=== PATIENT | female | born 1945 | race Two or more races ===

== ENCOUNTER 2017-08-10 16:24 | Emergency (ER) | payer OTHER, MEDICAID ==
[~2017-08-10] VITALS: Ht 157.5 cm; Wt 76.2 kg
[2017-08-10 16:43] VITALS: BP 124/86
[2017-08-10 19:30] LABS: Basophils # (auto) 0.1 uL; Basophils % (auto) 1.1 % (0.0-2.0); Eosinophils # (auto) 0.4 uL; Eosinophils % (auto) 7.3 % (0.0-7.0); Hematocrit 43.1 % (36.0-46.0); Hemoglobin 14.1 g/dL (12.2-16.2); Lymphocytes # (auto) 1.3 uL; Lymphocytes % (auto) 26.9 % (10.0-50.0); Mean Corpuscular Hemoglobin 28.2 pg (28.0-32.0); Mean Corpuscular Hgb Conc. 32.7 g/dL (32.0-36.0); Mean Corpuscular Volume 86.2 fL (80.0-100.0); Monocytes # (auto) 0.6 uL; Monocytes % (auto) 12.6 % (0.0-12.0); Neutrophils # (auto) 2.6 uL; Neutrophils % (auto) 52.1 % (37.0-80.0); Nucleated Red Blood Cells % 0.7 %; Platelet Count (auto) 246 10^3/uL (140-450); Red Cell Distribution Width 14.4 % (11.8-14.3); White Blood Cell 4.9 10^3/uL (4.4-10.8)
[2017-08-10 19:44] LABS: Albumin 3.8 g/dL (3.4-5.0); BUN/Creatinine Ratio 23.6; Bilirubin, Total 0.3 mg/dL (0.2-1.0); Calcium 9.2 mg/dL (8.5-10.1); Potassium 4.4 mmol/L (3.5-5.1); Total Protein 7.6 g/dL (6.4-8.2)
== END 2017-08-10 22:13 | disposition left against medical advice (07) ==
LOC: ER 16:24
DX: J40 Bronchitis, not specified as acute or chronic (principal); E11.9 Type 2 diabetes mellitus without complications; I10 Essential (primary) hypertension
CPT/HCPCS: 36415; 71046; 80053; 84484; 85025; 93005

== ENCOUNTER → 2018-06-20 | Day surgery (SDC) | payer OTHER, MEDICAID ==
[~2018-06-20] VITALS: Ht 152.4 cm; Wt 76.2 kg
[~2018-06-20] MED LIST: AMLO5TAB13 PO; ANGIOMAX 250 MG VIAL IV ONE; ASPI-231 PO; HEPARIN SODIUM (PORCINE) 5000 UNITS/ML 1ML VIAL ONE; IODIXANOL 320MG/ML 100ML BTL IV ONE; LIDOCAINE 2%HCL (LOCAL ANESTH.) INJ 20ML MDV ONE; LISI-706 PO; METF-371 PO; MIDAZOLAM HCL 1MG/1ML-2 ML VIAL ONE; SIMV-8 PO; SODIUM CHL 0.9% 0 ML ONE; VERAPAMIL 2.5MG/ML INJ 2ML VIAL IV ONE; fentaNYL CITRATE 100 MCG/2 ML VL ONE
== END | disposition home or self-care (01) ==
LOC: CATH 09:37
PROVIDERS: ATTEND Internal Medicine
DX: I25.10 Atherosclerotic heart disease of native coronary artery without angina pectoris (principal); R94.39 Abnormal result of other cardiovascular function study; E11.9 Type 2 diabetes mellitus without complications; F10.99 Alcohol use, unspecified with unspecified alcohol-induced disorder; I11.0 Hypertensive heart disease with heart failure; E78.5 Hyperlipidemia, unspecified; I25.2 Old myocardial infarction; I73.9 Peripheral vascular disease, unspecified; J45.909 Unspecified asthma, uncomplicated; Z88.8 Allergy status to other drugs, medicaments and biological substances; Z79.84 Long term (current) use of oral hypoglycemic drugs; Z79.899 Other long term (current) drug therapy; Z87.891 Personal history of nicotine dependence; Z79.82 Long term (current) use of aspirin
CPT/HCPCS: 36600; 82805; 93458; 93886; A6257; C1769; C1894; J1644; J2250; J3010; J7030; Q9967; 99152

== ENCOUNTER → 2018-06-26 | Outpatient (CLI) | payer OTHER, MEDICAID ==
[~2018-06-26] MED LIST changes: -ANGIOMAX 250 MG VIAL IV ONE; -HEPARIN SODIUM (PORCINE) 5000 UNITS/ML 1ML VIAL ONE; -IODIXANOL 320MG/ML 100ML BTL IV ONE; -LIDOCAINE 2%HCL (LOCAL ANESTH.) INJ 20ML MDV ONE; -MIDAZOLAM HCL 1MG/1ML-2 ML VIAL ONE; -SODIUM CHL 0.9% 0 ML ONE; -VERAPAMIL 2.5MG/ML INJ 2ML VIAL IV ONE; -fentaNYL CITRATE 100 MCG/2 ML VL ONE
== END | disposition home or self-care (01) ==
LOC: XYW 10:50
PROVIDERS: ATTEND Specialist
DX: I08.1 Rheumatic disorders of both mitral and tricuspid valves (principal); I25.10 Atherosclerotic heart disease of native coronary artery without angina pectoris
CPT/HCPCS: 93306

== ENCOUNTER → 2018-09-05 | Outpatient (CLI) | payer OTHER, MEDICAID ==
[~2018-09-05] MED LIST changes: +ATOR20TA50 PO; +CLOP75TA28 PO; +GABA300C10 PO; -LISI-706 PO; +MET25T PO; +NITR0.4S29 SL; -SIMV-8 PO
== END | disposition home or self-care (01) ==
LOC: Rad HDHVI 09:41
PROVIDERS: ATTEND Internal Medicine Cardiovascular Disease
DX: I50.23 Acute on chronic systolic (congestive) heart failure (principal); I25.119 Atherosclerotic heart disease of native coronary artery with unspecified angina pectoris
CPT/HCPCS: 93306

== ENCOUNTER → 2018-10-31 | Outpatient (CLI) | payer OTHER, MEDICAID ==
[~2018-10-31] VITALS: Ht 152.4 cm; Wt 75.3 kg
[~2018-10-31] MED LIST changes: +ADENOSINE 63 MG in GIVE UN-DILUTED 0 ML IV ONE; +ADENOSINE 90 MG/30 ML INJ IV ONE
== END | disposition home or self-care (01) ==
LOC: Rad HDHVI 09:50
PROVIDERS: ATTEND Internal Medicine Cardiovascular Disease
DX: I25.119 Atherosclerotic heart disease of native coronary artery with unspecified angina pectoris (principal); I13.0 Hypertensive heart and chronic kidney disease with heart failure and stage 1 through stage 4 chronic kidney disease, or unspecified chronic kidney disease; E11.22 Type 2 diabetes mellitus with diabetic chronic kidney disease; I50.23 Acute on chronic systolic (congestive) heart failure; N18.3 Chronic kidney disease, stage 3 (moderate)
CPT/HCPCS: 78452; 93005; 96374; 96375; A9500; J0153

== ENCOUNTER 2019-01-26 14:10 | Emergency (ER) | payer OTHER, MEDICAID ==
[~2019-01-26] VITALS: Ht 152.4 cm; Wt 77.1 kg
[~2019-01-26 14:10] MED LIST changes: -ADENOSINE 63 MG in GIVE UN-DILUTED 0 ML IV ONE; -ADENOSINE 90 MG/30 ML INJ IV ONE; -AMLO5TAB13 PO; +AMLO5TAB15 PO; +HYDR50TA15 PO; +ISOS20TA49 PO
[2019-01-26 17:14] VITALS: BP 139/69
[2019-01-26] MEDS ORDERED: ALBUTEROL SULF 2.5 MG/0.5ML(0.5%) NEB SOLN NEB ONE (18:15)
[2019-01-26] MEDS ORDERED: IPRATROPIUM BROM 0.5 MG/2.5ML INH SOL NEB ONE (18:15)
== END 2019-01-26 19:02 | disposition home or self-care (01) ==
LOC: ER 14:13
DX: T82.858A Stenosis of other vascular prosthetic devices, implants and grafts, initial encounter (principal); N12 Tubulo-interstitial nephritis, not specified as acute or chronic; J45.909 Unspecified asthma, uncomplicated; E11.9 Type 2 diabetes mellitus without complications; E78.5 Hyperlipidemia, unspecified; I10 Essential (primary) hypertension; Z90.710 Acquired absence of both cervix and uterus; Z87.891 Personal history of nicotine dependence; Y83.8 Other surgical procedures as the cause of abnormal reaction of the patient, or of later complication, without mention of misadventure at the time of the procedure; Y92.89 Other specified places as the place of occurrence of the external cause
CPT/HCPCS: 71046; 94640; 99285; J7030; J7611; J7644

== ENCOUNTER 2019-02-05 09:54 | Emergency (ER) | payer OTHER, MEDICAID ==
[~2019-02-05] VITALS: Ht 152.4 cm; Wt 72.6 kg
[2019-02-05 11:55] LABS: INR 0.94 (0.9-1.15); Partial Thromboplastin Time 27.9 sec (23.64-32.05)
[2019-02-05 13:51] VITALS: BP 150/83
== END 2019-02-05 13:51 | disposition home or self-care (01) ==
LOC: ER 09:54
DX: T82.898A Other specified complication of vascular prosthetic devices, implants and grafts, initial encounter (principal); J44.9 Chronic obstructive pulmonary disease, unspecified; E11.9 Type 2 diabetes mellitus without complications; E78.00 Pure hypercholesterolemia, unspecified; I10 Essential (primary) hypertension; Z90.710 Acquired absence of both cervix and uterus; Z87.891 Personal history of nicotine dependence; Z79.82 Long term (current) use of aspirin; Z79.01 Long term (current) use of anticoagulants; Z79.899 Other long term (current) drug therapy; Z88.8 Allergy status to other drugs, medicaments and biological substances
CPT/HCPCS: 36415; 85610; 85730

== ENCOUNTER 2019-02-06 08:52 | Emergency (ER) | payer OTHER, MEDICAID ==
[~2019-02-06] VITALS: Ht 154.9 cm; Wt 77.1 kg
[2019-02-06 09:17] VITALS: BP 91/58
== END 2019-02-06 11:20 | disposition home or self-care (01) ==
LOC: ER 08:55
DX: N39.0 Urinary tract infection, site not specified (principal); J44.9 Chronic obstructive pulmonary disease, unspecified; E11.9 Type 2 diabetes mellitus without complications; E78.5 Hyperlipidemia, unspecified; I10 Essential (primary) hypertension; Z76.89 Persons encountering health services in other specified circumstances; Z79.82 Long term (current) use of aspirin; Z79.899 Other long term (current) drug therapy; Z79.84 Long term (current) use of oral hypoglycemic drugs; Z90.710 Acquired absence of both cervix and uterus; Z87.891 Personal history of nicotine dependence

== ENCOUNTER 2019-02-07 08:44 | Emergency (ER) | payer OTHER, MEDICAID ==
[~2019-02-07] VITALS: Ht 152.4 cm; Wt 77.1 kg
[2019-02-07 09:59] VITALS: BP 153/60
== END 2019-02-07 11:23 | disposition home or self-care (01) ==
LOC: ER 08:46
DX: Z29.8 Encounter for other specified prophylactic measures (principal); J44.9 Chronic obstructive pulmonary disease, unspecified; E11.9 Type 2 diabetes mellitus without complications; E78.5 Hyperlipidemia, unspecified; I10 Essential (primary) hypertension; Z90.710 Acquired absence of both cervix and uterus; Z79.82 Long term (current) use of aspirin; Z87.891 Personal history of nicotine dependence

== ENCOUNTER 2020-03-10 12:08 | Inpatient (IN) | payer OTHER, MEDICAID ==
[~2020-03-10] VITALS: Ht 152.4 cm; Wt 77.0 kg
[~2020-03-10 12:08] MED LIST changes: +AML5T PO; -AMLO5TAB15 PO; -ASPI-231 PO; +ASPI81CH43 PO; +FAMO20TA10 PO; +FURO1TAB31 PO; +GLIP5TAB12 PO; +HYDR-2691 PO; -HYDR50TA15 PO; -ISOS20TA49 PO; +ISOS30TA4 PO; +LACT10SO3 PO; -METF-371 PO
[2020-03-10] MEDS ORDERED: SODIUM CHLORIDE 0.9% 1,000 ML IV ONE (12:21)
[2020-03-10] MEDS ORDERED: MORPHINE SULF INJ 2 MG/ML SYRINGE 1ML IV ONE (12:30)
[2020-03-10] MEDS ORDERED: ONDANSETRON HCL 4 MG/2 ML VIAL IV ONE (12:30)
[2020-03-10 13:47] LABS: Basophils # (auto) 0 10 ^3/uL (0-0.2); Basophils % (auto) 0.7 % (0.0-2.0); Eosinophils # (auto) 0.2 10 ^3/uL (0-0.8); Eosinophils % (auto) 3.2 % (0.0-7.0); Hematocrit 37.2 % (36.0-46.0); Hemoglobin 12.1 g/dL (12.2-16.2); Lymphocytes # (auto) 1.2 10 ^3/uL (0.4-5.4); Lymphocytes % (auto) 18.2 % (10.0-50.0); Mean Corpuscular Hemoglobin 28.2 pg (28.0-32.0); Mean Corpuscular Hgb Conc. 32.6 g/dL (32.0-36.0); Mean Corpuscular Volume 86.6 fL (80.0-100.0); Monocytes # (auto) 0.6 10 ^3/uL (0-1.3); Neutrophils # (auto) 4.3 10 ^3/uL (1.6-8.6); Neutrophils % (auto) 67.9 % (37.0-80.0); Platelet Count (auto) 233 10^3/uL (140-450); Red Cell Distribution Width 14.1 % (11.8-14.3); White Blood Cell 6.4 10^3/uL (4.4-10.8)
[2020-03-10 14:07] LABS: Albumin 3.2 g/dL (3.4-5.0); Anion Gap 5 (5-15); Blood Urea Nitrogen 27 mg/dL (7-18); Calcium 8.5 mg/dL (8.5-10.1); Carbon Dioxide 22 mmol/L (21-32); Chloride 112 mmol/L (98-107); Potassium 4.3 mmol/L (3.5-5.1); Sodium 139 mmol/L (136-145)
[2020-03-10 14:13] LABS: INR 0.97 (0.9-1.15); Partial Thromboplastin Time 25.9 sec (23.0-31.2)
[2020-03-10 14:15] LABS: Alanine Aminotransferase 21 U/L (13-56); Alkaline Phosphatase 103 U/L (45-117); Aspartate Aminotransferase 10 U/L (15-37); BUN/Creatinine Ratio 22.3; Bilirubin, Total 0.3 mg/dL (0.2-1.0); GFR African American 56 mL/min; GFR Non-African American 46 mL/min; Glucose 139 mg/dL (74-106); Total Protein 6.5 g/dL (6.4-8.2)
[2020-03-10] MEDS ORDERED: IBUPROFEN 800 MG TAB PO ONE (15:45)
[2020-03-10 16:36] LABS: Urine Bacteria MOD /hpf (None Seen); Urine Blood Negative /uL (Negative); Urine Hyaline Cast FEW /lpf (0 - 2); Urine Mucus FEW (None Seen); Urine Specific Gravity 1.017 (1.001-1.035); Urine WBC 7 /hpf (0 - 5)
[2020-03-10] MEDS ORDERED: SODIUM CHLORIDE 0.9% 1,000 ML IV SCH (18:06)
[2020-03-10] MEDS ORDERED: ACETAMINOPHEN 325 MG TAB PO PRN (18:15)
[2020-03-10] MEDS ORDERED: ALUM & MAG HYDROX-SIMETH LIQ(MAALOX) 30 ML PO ONE (18:15)
[2020-03-10] MEDS ORDERED: ONDANSETRON HCL 4 MG/2 ML VIAL IV PRN ×2 (18:15)
[2020-03-10] MEDS ORDERED: HYDROcodone-ACET 5/325MG TAB PO PRN (18:15)
[2020-03-10] MEDS ORDERED: FUROSEMIDE 100 MG/10ML VIAL IV ONE (18:15)
[2020-03-10] MEDS ORDERED: MORPHINE SULF INJ 2 MG/ML SYRINGE 1ML IV PRN ×2 (18:15)
[2020-03-10] MEDS ORDERED: LORazepam 0.5 MG TAB PO PRN ×2 (18:15)
[2020-03-10] MEDS ORDERED: AZITHROMYCIN 500MG/ 250ML 250 ML IV ONE (18:15)
[2020-03-10] MEDS ORDERED: MORPHINE SULFATE 4 MG/ML SYR/VIAL IV PRN (18:15)
[2020-03-10] MEDS ORDERED: NITROGLYCERIN 0.4 MG SL TAB SL PRN ×3 (18:15)
[2020-03-10] MEDS ORDERED: DOCUSATE SOD 100 MG CAP PO PRN (18:15)
[2020-03-10] MEDS ORDERED: cefTRIAXone 1GM/50ML D5W 50 ML IV ONE (18:15)
[2020-03-10 19:01] LABS: Alcohol, Urine < 3.0 mg/dL (0-10); Amphetamine Screen, Urine NEGATIVE (NEGATIVE); Barbiturate Scree,Urine NEGATIVE (NEGATIVE); Benzodiazephine Screen, Urine NEGATIVE (NEGATIVE); Cannabinoid Screen, Urine NEGATIVE (NEGATIVE); Cocaine Screen, Urine NEGATIVE (NEGATIVE); Opiate Scree,Urine NEGATIVE (NEGATIVE); Phencyclidine Screen, Urine NEGATIVE (NEGATIVE)
[2020-03-10] MEDS ORDERED: PRED1SUS4 OP (19:07)
[2020-03-10] MEDS ORDERED: LISI-648 PO (19:07)
[2020-03-10] MEDS ORDERED: ASPI-498 PO ×2 (19:07→19:08)
[2020-03-10] MEDS ORDERED: MULT1CHW18 PO (19:07)
[2020-03-10] MEDS ORDERED: ISOS30TA4 PO (19:07)
[2020-03-10] MEDS ORDERED: ALOG1TAB2 PO (19:07)
[2020-03-10 21:49] VITALS: BP 138/68
[2020-03-10] MEDS: ATORVASTATIN 20 MG TAB PO SCH (22:00)
[2020-03-10 22:35] VITALS: BP 138/68
[2020-03-10] MEDS ORDERED: DEXTROSE (50%) 50ML SYRG IV PRN (23:00)
[2020-03-10] MEDS: SODIUM CHLORIDE 0.9% 1,000 ML IV SCH (23:22)
[2020-03-11] MEDS ORDERED: ALUM & MAG HYDROX-SIMETH LIQ(MAALOX) 30 ML PO PRN
[2020-03-11] MEDS: MORPHINE SULF INJ 2 MG/ML SYRINGE 1ML IV PRN (05:15)
[2020-03-11 05:30] VITALS: BP 156/76
[2020-03-11] MEDS: FUROSEMIDE 20 MG/2 ML VIAL IV SCH ×2 (06:13→18:04)
[2020-03-11] MEDS: hydrALAZINE HCL 25 MG TAB PO SCH ×3 (06:13→22:00)
[2020-03-11] MEDS: InsuLIN REG 1unit/0.01ml Soln (100units/ml) SC SCH ×4 (07:00→22:37)
[2020-03-11] MEDS: ACCU-CHEK COMFORT CURVE STRIP VI SCH ×4 (07:25→22:23)
[2020-03-11 09:00] VITALS: BP 123/58
[2020-03-11] MEDS ORDERED: DOCUSATE SOD 100 MG CAP PO SCH (10:00)
[2020-03-11] MEDS ORDERED: AZITHROMYCIN 500MG/ 250ML 250 ML IV SCH (10:00)
[2020-03-11] MEDS ORDERED: LISINOPRIL 5 MG TAB PO SCH (10:00)
[2020-03-11] MEDS: LISINOPRIL 5 MG TAB PO SCH ×3 (10:00→22:23)
[2020-03-11] MEDS: cefTRIAXone 1GM/50ML D5W 50 ML IV SCH (10:06)
[2020-03-11] MEDS: METOPROLOL TARTRATE 25 MG TAB PO SCH ×2 (10:07→22:21)
[2020-03-11] MEDS: ISOSORBIDE MONONITRATE ER 60 MG TAB PO SCH ×2 (10:07→22:20)
[2020-03-11] MEDS: ENOXAPARIN SOD 40 MG/0.4 ML SYRINGE SC SCH (10:07)
[2020-03-11] MEDS: ASPirin 81 mg TAB PO SCH (10:07)
[2020-03-11] MEDS ORDERED: OPTISON 3ml Vial for INJ IV ONE (11:54)
[2020-03-11 12:00] VITALS: BP 128/61
[2020-03-11 15:48] LABS: Basophils # (auto) 0.1 10 ^3/uL (0-0.2); Basophils % (auto) 0.8 % (0.0-2.0); Eosinophils # (auto) 0.4 10 ^3/uL (0-0.8); Eosinophils % (auto) 5.4 % (0.0-7.0); Hematocrit 39.2 % (36.0-46.0); Hemoglobin 12.9 g/dL (12.2-16.2); Lymphocytes # (auto) 1.1 10 ^3/uL (0.4-5.4); Lymphocytes % (auto) 13.2 % (10.0-50.0); Mean Corpuscular Hemoglobin 28.8 pg (28.0-32.0); Mean Corpuscular Volume 87.3 fL (80.0-100.0); Monocytes # (auto) 0.7 10 ^3/uL (0-1.3); Monocytes % (auto) 8.5 % (0.0-12.0); Neutrophils # (auto) 5.9 10 ^3/uL (1.6-8.6); Neutrophils % (auto) 72.1 % (37.0-80.0); Platelet Count (auto) 256 10^3/uL (140-450); Red Blood Cells 4.49 10^6/uL (4.0-5.20); Red Cell Distribution Width 14.2 % (11.8-14.3); White Blood Cell 8.2 10^3/uL (4.4-10.8)
[2020-03-11 17:00] VITALS: BP 133/76
[2020-03-11 17:51] LABS: BUN/Creatinine Ratio 21.6; Potassium 4.6 mmol/L (3.5-5.1)
[2020-03-11 17:52] LABS: Calcium 8.7 mg/dL (8.5-10.1)
[2020-03-11 20:00] VITALS: BP 128/64
[2020-03-11 22:00] VITALS: BP 128/64
[2020-03-11] MEDS: ATORVASTATIN 20 MG TAB PO SCH (22:21)
[2020-03-11] MEDS: SODIUM CHLORIDE 0.9% 1,000 ML IV SCH (23:25)
[2020-03-12 04:55] VITALS: BP 145/70
[2020-03-12] MEDS: MORPHINE SULF INJ 2 MG/ML SYRINGE 1ML IV PRN (05:36)
[2020-03-12] MEDS: hydrALAZINE HCL 25 MG TAB PO SCH ×3 (06:27→22:00)
[2020-03-12] MEDS: FUROSEMIDE 20 MG/2 ML VIAL IV SCH ×2 (06:27→18:23)
[2020-03-12] MEDS: ACCU-CHEK COMFORT CURVE STRIP VI SCH ×4 (06:37→21:43)
[2020-03-12] MEDS: InsuLIN REG 1unit/0.01ml Soln (100units/ml) SC SCH ×4 (06:44→22:18)
[2020-03-12 08:00] VITALS: BP 147/76
[2020-03-12] MEDS: cefTRIAXone 1GM/50ML D5W 50 ML IV SCH (08:54)
[2020-03-12 09:00] VITALS: BP 147/76
[2020-03-12] MEDS: ASPirin 81 mg TAB PO SCH (10:08)
[2020-03-12] MEDS: METOPROLOL TARTRATE 25 MG TAB PO SCH ×2 (10:09→22:00)
[2020-03-12] MEDS: LISINOPRIL 5 MG TAB PO SCH ×2 (10:10→22:00)
[2020-03-12] MEDS: ENOXAPARIN SOD 40 MG/0.4 ML SYRINGE SC SCH (10:10)
[2020-03-12] MEDS: ISOSORBIDE MONONITRATE ER 60 MG TAB PO SCH ×2 (10:11→22:00)
[2020-03-12 10:42] LABS: BUN/Creatinine Ratio 26.3; Calcium 8.7 mg/dL (8.5-10.1); Potassium 4.5 mmol/L (3.5-5.1)
[2020-03-12 13:00] VITALS: BP 125/63
[2020-03-12 17:00] VITALS: BP 139/69
[2020-03-12 22:00] VITALS: BP 126/67
[2020-03-12] MEDS: ATORVASTATIN 20 MG TAB PO SCH (22:00)
[2020-03-13 05:00] VITALS: BP 120/64
[2020-03-13] MEDS: hydrALAZINE HCL 25 MG TAB PO SCH ×2 (06:00→13:28)
[2020-03-13] MEDS: InsuLIN REG 1unit/0.01ml Soln (100units/ml) SC SCH ×3 (06:12→17:00)
[2020-03-13] MEDS: ACCU-CHEK COMFORT CURVE STRIP VI SCH ×3 (06:30→17:26)
[2020-03-13] MEDS: FUROSEMIDE 20 MG/2 ML VIAL IV SCH (06:30)
[2020-03-13 08:00] VITALS: BP 116/55
[2020-03-13 09:00] VITALS: BP 116/55
[2020-03-13] MEDS: cefTRIAXone 1GM/50ML D5W 50 ML IV SCH (09:20)
[2020-03-13] MEDS: ASPirin 81 mg TAB PO SCH (09:20)
[2020-03-13] MEDS: METOPROLOL TARTRATE 25 MG TAB PO SCH (09:21)
[2020-03-13] MEDS: ISOSORBIDE MONONITRATE ER 60 MG TAB PO SCH (09:21)
[2020-03-13] MEDS: LISINOPRIL 5 MG TAB PO SCH (09:21)
[2020-03-13] MEDS: ENOXAPARIN SOD 40 MG/0.4 ML SYRINGE SC SCH (09:21)
[2020-03-13 12:45] VITALS: BP 111/59
[2020-03-13 16:33] VITALS: BP 111/70
[2020-03-13 17:21] VITALS: BP 130/62
== END 2020-03-13 17:57 | disposition home or self-care (01) | DRG 302 ==
LOC: ER 12:08 → EDBD 12:08 → TELE 12:09 → TELE-WESTW 21:50
PROVIDERS: ADMIT Hospitalist; ATTEND Internal Medicine
DX: I25.10 Atherosclerotic heart disease of native coronary artery without angina pectoris (principal); N17.0 Acute kidney failure with tubular necrosis; E44.1 Mild protein-calorie malnutrition; N39.0 Urinary tract infection, site not specified; I13.0 Hypertensive heart and chronic kidney disease with heart failure and stage 1 through stage 4 chronic kidney disease, or unspecified chronic kidney disease; I50.42 Chronic combined systolic (congestive) and diastolic (congestive) heart failure; I50.82 Biventricular heart failure; I25.5 Ischemic cardiomyopathy; E66.01 Morbid (severe) obesity due to excess calories; J44.9 Chronic obstructive pulmonary disease, unspecified; E11.22 Type 2 diabetes mellitus with diabetic chronic kidney disease; N18.3 Chronic kidney disease, stage 3 (moderate); E78.5 Hyperlipidemia, unspecified; K27.9 Peptic ulcer, site unspecified, unspecified as acute or chronic, without hemorrhage or perforation; Z79.02 Long term (current) use of antithrombotics/antiplatelets; Z79.82 Long term (current) use of aspirin; Z79.84 Long term (current) use of oral hypoglycemic drugs; Z80.0 Family history of malignant neoplasm of digestive organs; Z80.1 Family history of malignant neoplasm of trachea, bronchus and lung; Z82.0 Family history of epilepsy and other diseases of the nervous system; Z82.49 Family history of ischemic heart disease and other diseases of the circulatory system; Z82.5 Family history of asthma and other chronic lower respiratory diseases; Z83.3 Family history of diabetes mellitus; Z85.038 Personal history of other malignant neoplasm of large intestine; Z85.41 Personal history of malignant neoplasm of cervix uteri; Z87.891 Personal history of nicotine dependence; Z90.710 Acquired absence of both cervix and uterus; Z68.32 Body mass index [BMI] 32.0-32.9, adult
CPT/HCPCS: 36415; 71045; 76705; 80048; 80053; 80307; 81001; 82962; 83036; 83880; 84443; 84484; 85025; 85610; 85730; 87040; 87086; 93005; 93306; 96361; 96374; 96375; G0378; J0696; J1815; J2405; Q9956

== ENCOUNTER 2020-04-04 14:08 | Inpatient (IN) | payer MEDICARE, MEDICAID ==
[~2020-04-04] VITALS: Ht 157.5 cm; Wt 74.0 kg
[~2020-04-04 14:08] MED LIST changes: +ALOG1TAB2 PO; -ATOR20TA50 PO; -CLOP75TA28 PO; -FAMO20TA10 PO; -FURO1TAB31 PO; -GABA300C10 PO; -LACT10SO3 PO; +LISI-648 PO; +MULT1CHW18 PO; +PRED1SUS4 OP
[2020-04-04 17:19] LABS: Basophils # (auto) 0 10 ^3/uL (0-0.2); Basophils % (auto) 0.6 % (0.0-2.0); Eosinophils # (auto) 0.3 10 ^3/uL (0-0.8); Eosinophils % (auto) 3.9 % (0.0-7.0); Hematocrit 40.2 % (36.0-46.0); Hemoglobin 13.5 g/dL (12.2-16.2); Lymphocytes # (auto) 1.5 10 ^3/uL (0.4-5.4); Lymphocytes % (auto) 20.2 % (10.0-50.0); Mean Corpuscular Hgb Conc. 33.5 g/dL (32.0-36.0); Mean Corpuscular Volume 86.5 fL (80.0-100.0); Monocytes # (auto) 0.6 10 ^3/uL (0-1.3); Monocytes % (auto) 8.5 % (0.0-12.0); Neutrophils % (auto) 66.8 % (37.0-80.0); Platelet Count (auto) 259 10^3/uL (140-450); Red Blood Cells 4.65 10^6/uL (4.0-5.20); Red Cell Distribution Width 13.4 % (11.8-14.3); White Blood Cell 7.5 10^3/uL (4.4-10.8)
[2020-04-04 17:32] LABS: Albumin 3.6 g/dL (3.4-5.0); Calcium 9.5 mg/dL (8.5-10.1); Potassium 4.1 mmol/L (3.5-5.1)
[2020-04-04 17:35] LABS: Bilirubin, Total 0.3 mg/dL (0.2-1.0); Total Protein 7.4 g/dL (6.4-8.2)
[2020-04-04 17:41] LABS: INR 0.95 (0.9-1.15); Partial Thromboplastin Time 23.4 sec (23.0-31.2)
[2020-04-04] MEDS ORDERED: NITROGLYCERIN 0.4 MG SL TAB SL PRN ×2 (18:30→20:30)
[2020-04-04] MEDS ORDERED: MORPHINE SULF INJ 2 MG/ML SYRINGE 1ML IV PRN ×2 (18:30→20:30)
[2020-04-04] MEDS ORDERED: LORazepam 2MG/ML-1ML VIAL IV PRN (20:00)
[2020-04-04] MEDS ORDERED: ACETAMINOPHEN 325 MG TAB PO PRN (20:00)
[2020-04-04 20:21] VITALS: BP 188/86
[2020-04-04] MEDS ORDERED: DOCUSATE SOD 100 MG CAP PO PRN (20:30)
[2020-04-04] MEDS ORDERED: ALUM & MAG HYDROX-SIMETH LIQ(MAALOX) 30 ML PO PRN (20:30)
[2020-04-04] MEDS ORDERED: ONDANSETRON HCL 4 MG/2 ML VIAL IV PRN (20:30)
[2020-04-04] MEDS ORDERED: PIPERACILLIN-TAZOB 3.375GM 100 ML IV ONE (20:30)
[2020-04-04] MEDS ORDERED: DEXTROSE (50%) 50ML SYRG IV PRN (20:30)
[2020-04-04 20:55] VITALS: BP 166/70
--- NOTE | 2020-04-04 20:59 | NUR ---
AT BEDSIDE FOR CPAP INITIATION. PER PT SHE CANNOT TOLERATE ANYTHING BEING ON HER FACE. SHE STATES SHE CAN BARELY TOLERATE SIMPLE MASK. SHE ALSO STATES THAT SHE HAD A VERY BAD HEADACHE EARLIER AND WOULD NOT TOLERATE ANYTHING TIGHT AROUND HER HEAD. PT REMAINS ON RA POX 95%
[2020-04-04] MEDS ORDERED: FAMOTIDINE (10MG/ML) 2ML VL IV ONE (21:00)
[2020-04-04] MEDS: SODIUM CHLORIDE 0.9% 1,000 ML IV SCH (21:05)
--- NOTE | 2020-04-04 21:10 | NUR ---
Telemetry admit from [facility] admitted to Telemetry unit. Patient oriented to BERNARDINO KITCHEN, RN primary RN, unit, room, bed, and unit policies regarding patient care and visiting hours. Patient now on continuous telemetry monitoring, tele box #59. Patient weighed by bedscale and encouraged to call if they need something. All questions and concerns addressed, patient verbalized understanding. Note: Patient is alert and oriented with moments of intermittent confusion and is able to be reoriented easily.
--- NOTE | 2020-04-04 21:12 | NUR ---
IV removal/Insertion Patient accidentally removed 20g IV to the Left Wrist. Catheter tip fully intact, pressure dressing applied to site. NOTE:Inserted 22g IV to the Right forearm. Patient tolerated well. Will continue to monitor.
[2020-04-04] MEDS: ATORVASTATIN 20 MG TAB PO SCH (22:10)
[2020-04-04] MEDS: METOPROLOL TARTRATE 25 MG TAB PO SCH (22:10)
[2020-04-04] MEDS: MORPHINE SULF INJ 2 MG/ML SYRINGE 1ML IV PRN (22:10)
[2020-04-04 23:09] LABS: Cholesterol 270 mg/dL (< 200); HDL Cholesterol 49 mg/dL (40-59); LDL Cholesterol 204 mg/dL (< 100); Triglycerides 121 mg/dL (< 150)
--- NOTE | 2020-04-05 00:22 | NUR ---
Patient confused and agitated Patient is confused and becoming agitated due to difficulty with vision. Patient refusing assistance to the restroom, patient has unsteady gait and is still having difficulties with vision. Able to have patient go back to bed and use bedpan. Patient now has sitter. Will continue to monitor .
[2020-04-05] MEDS: PIPERACILLIN-TAZOB 3.375GM 100 ML IV SCH ×4 (00:28→17:58)
[2020-04-05] MEDS: ACCU-CHEK COMFORT CURVE STRIP VI SCH ×4 (00:28→18:00)
[2020-04-05 01:25] LABS: Urine Bacteria MANY /hpf (None Seen); Urine Blood Negative /uL (Negative); Urine Specific Gravity 1.016 (1.001-1.035); Urine WBC 8 /hpf (0 - 5)
[2020-04-05 01:31] LABS: Amphetamine Screen, Urine NEGATIVE (NEGATIVE); Barbiturate Scree,Urine NEGATIVE (NEGATIVE); Benzodiazephine Screen, Urine NEGATIVE (NEGATIVE); Cannabinoid Screen, Urine NEGATIVE (NEGATIVE); Cocaine Screen, Urine NEGATIVE (NEGATIVE); Opiate Scree,Urine NEGATIVE (NEGATIVE); Phencyclidine Screen, Urine NEGATIVE (NEGATIVE)
[2020-04-05 04:43] VITALS: BP 154/73
[2020-04-05] MEDS: LORazepam 0.5 MG TAB PO PRN ×2 (04:51→11:48)
[2020-04-05] MEDS: hydrALAZINE HCL 25 MG TAB PO PRN (04:51)
[2020-04-05] MEDS: InsuLIN REG 1unit/0.01ml Soln (100units/ml) SC SCH ×4 (06:00→18:00)
[2020-04-05 06:05] VITALS: BP 137/78
--- NOTE | 2020-04-05 06:59 | NUR ---
Daughter Phone Call Patient's daughter Benita called to provide information and answers for patient's admission. Per daughter, patient had been exposed to granddaughter who had tested positive for COVID on 03/19/20. Per daughter, patient was tested on 03/25/20 and was informed that test was first inconclusive and then resulted as negative. Patient denies any symptoms and does not show any signs. Will endorse to AM nurse.
[2020-04-05] MEDS ORDERED: ISOS20TA49 PO (07:35)
[2020-04-05] MEDS ORDERED: HYDR-4296 PO (07:35)
[2020-04-05] MEDS ORDERED: PANT1INJ3 PO (07:35)
--- NOTE | 2020-04-05 07:50 | NUR ---
Opening Shift Note Assumed care of patient, awake and alert to person only. She does not know where she is, time,or situation. Reoriented to place and time. No S/S of distress/SOB or pain. Instructed on POC and to call for assist PRN, will continue to monitor for changes Q1hr and PRN.
--- NOTE | 2020-04-05 08:00 | NUR ---
Phone Call with daughter Spoke with daughter regarding confusion, she states that she is now more confused than previous. Recommending that we hold her morphine, as that may be the cause of her increased confusion.
[2020-04-05] MEDS: ASPirin 81 mg TAB PO SCH (09:46)
[2020-04-05] MEDS: CLOPIDOGREL BISULFATE 75 MG TAB PO SCH (09:47)
[2020-04-05] MEDS: METOPROLOL TARTRATE 25 MG TAB PO SCH ×2 (09:47→21:40)
[2020-04-05] MEDS: SODIUM CHLORIDE 0.9% 1,000 ML IV SCH (09:49)
[2020-04-05] MEDS ORDERED: LISINOPRIL 10 MG TAB PO SCH (10:00)
[2020-04-05] MEDS ORDERED: ISOSORBIDE MONONITRATE ER 60 MG TAB PO SCH (10:00)
[2020-04-05] MEDS ORDERED: FAMOTIDINE (10MG/ML) 2ML VL IV SCH ×3 (10:00)
--- NOTE | 2020-04-05 10:20 | NUR ---
Nutrition Consult Consider a swallow eval by speech therapy and diet consistency per speech therapy recommendations. Consider alternate nutrition if pt unable to pass swallow eval Est energy needs 6487-2464 kcal (20-23 kcal/kg BW 76.6kg) Est protein needs 50-65g (1-1.3g/kg BW 50kg IBW) Will reassess prn. Addendum: 04/05/20 at [address] Amended: Links added.
[2020-04-05] MEDS: ACETAMINOPHEN 325 MG TAB PO PRN (11:53)
--- NOTE | 2020-04-05 13:23 | NUR ---
ATTEMPTED SWALLOW EVALUATION. PATIENT WAS COMBATIVE AND HIT, CURSED AND SPIT AT THIS HEEL TURNER. RECORD CLERK SALESPERSON HAVING DIFFICULTY KEEPING PATIENT IN THE ROOM PATIENT CONTINUOUSLY TRYING TO LEAVE. UNABLE TO COMPLETE SWALLOW EVALUATION. NURSING NOTIFIED.
--- NOTE | 2020-04-05 13:43 | NUR ---
Agitation Patient is very agitated and combative. She is just pacing back and forth trying to walk away. Patient appears to be hallucinating, she talks with unseen persons and at one moment she is smiling and laughing, while at the next she is hitting and spitting. Hospitalist was notified.
[2020-04-05] MEDS ORDERED: HALOPERIDOL LACTATE 5 MG/ML INJ VIAL IM PRN (14:15)
--- NOTE | 2020-04-05 18:20 | NUR ---
Rounding Patient asleep in bed. No distress noted at this time.
--- NOTE | 2020-04-05 18:50 | NUR ---
Neurologist Rounded Patient remains asleep. Sitter at bedside for safety.
--- NOTE | 2020-04-05 19:47 | NUR ---
Opening Shift Note Received report and assumed care of patient. Patient is asleep, awakens to voice. Patient is confused and cooperative. No signs or symptoms of distress noted. Instructed patient on plan of care and to call for assistance as needed. Sitter at bedside. Will continue to monitor.
[2020-04-05] MEDS: ATORVASTATIN 20 MG TAB PO SCH (21:39)
[2020-04-05 22:07] VITALS: BP 130/73
[2020-04-06] MEDS: PIPERACILLIN-TAZOB 3.375GM 100 ML IV SCH ×2 (00:01→05:34)
[2020-04-06 05:00] VITALS: BP 148/67
[2020-04-06] MEDS: ACCU-CHEK COMFORT CURVE STRIP VI SCH ×4 (05:34→18:00)
[2020-04-06] MEDS: InsuLIN REG 1unit/0.01ml Soln (100units/ml) SC SCH ×4 (05:37→18:00)
[2020-04-06 06:03] LABS: Basophils # (auto) 0 10 ^3/uL (0-0.2); Basophils % (auto) 0.8 % (0.0-2.0); Eosinophils # (auto) 0.3 10 ^3/uL (0-0.8); Eosinophils % (auto) 5.3 % (0.0-7.0); Lymphocytes # (auto) 1.1 10 ^3/uL (0.4-5.4); Lymphocytes % (auto) 18.6 % (10.0-50.0); Mean Corpuscular Hemoglobin 29.4 pg (28.0-32.0); Mean Corpuscular Hgb Conc. 34.3 g/dL (32.0-36.0); Mean Corpuscular Volume 85.8 fL (80.0-100.0); Monocytes # (auto) 0.6 10 ^3/uL (0-1.3); Monocytes % (auto) 10.2 % (0.0-12.0); Neutrophils # (auto) 3.8 10 ^3/uL (1.6-8.6); Neutrophils % (auto) 65.1 % (37.0-80.0); Platelet Count (auto) 215 10^3/uL (140-450); Red Blood Cells 4.08 10^6/uL (4.0-5.20); Red Cell Distribution Width 13.9 % (11.8-14.3); White Blood Cell 5.8 10^3/uL (4.4-10.8)
[2020-04-06 06:28] LABS: Potassium 3.8 mmol/L (3.5-5.1)
[2020-04-06 06:34] LABS: Calcium 8.7 mg/dL (8.5-10.1)
--- NOTE | 2020-04-06 07:50 | NUR ---
Opening Shift Note Assumed care of patient, awake and alert. No S/S of distress/SOB or pain. Instructed on POC and to call for assist PRN, will continue to monitor for changes Q1hr and PRN. Bed locked in lowest position with two side rails up and call light in reach.
[2020-04-06 08:00] VITALS: BP 129/56
[2020-04-06 09:00] VITALS: BP 129/56
--- NOTE | 2020-04-06 10:20 | NUR ---
DR MARY MAKI.
[2020-04-06] MEDS ORDERED: amLODIPine BESYLATE 5 MG TAB PO ONE (11:15)
[2020-04-06] MEDS ORDERED: PANTOPRAZOLE 40 MG TAB PO ONE (11:15)
[2020-04-06] MEDS ORDERED: MULTIPLE VITAMINS W/ MINERALS TAB PO ONE (11:15)
[2020-04-06] MEDS ORDERED: ISOSORBIDE MONONITRATE IR 20 MG TAB PO ONE (11:15)
--- NOTE | 2020-04-06 11:45 | NUR ---
MEDICATIONS CLARIFIED WITH DR HERNANDEZ WILL ADMINISTER ORDERED.
[2020-04-06] MEDS: ASPirin 81 mg TAB PO SCH (11:46)
[2020-04-06] MEDS: CLOPIDOGREL BISULFATE 75 MG TAB PO SCH (11:47)
[2020-04-06] MEDS: METOPROLOL TARTRATE 25 MG TAB PO SCH ×2 (11:48→21:44)
[2020-04-06] MEDS: SODIUM CHLORIDE 0.9% 1,000 ML IV SCH ×2 (12:03)
[2020-04-06] MEDS: PIPERACILLIN-TAZOB 2.25GM 50 ML IV SCH ×2 (12:04→18:33)
[2020-04-06] MEDS: prednisoLONE ACETATE 1% OPTH SUSP 5ML EACHEYE SCH ×3 (12:23→21:43)
[2020-04-06 13:00] VITALS: BP 124/60
--- NOTE | 2020-04-06 15:26 | NUR ---
assessment re: ss consult Patient is a 74 year old female who is confused. Per patients daughter Benita prior to admission patient lived home with her and family and needed assistance. Patients PCP is Dr Atwood. Benita is patients [facility] caregiver. I informed Benita of patients ss consult for needing assistance with ADL's with new diagnosis. Per Benita she is requesting a fww for patient. Benita is requesting additional hours for patient through [facility]. Patient will also need a ss consult for home health for physical therapy and safety. I informed Benita I will continue to monitor and follow up as appropriate for any post discharge needs. Benita verbalized understanding and agreed to discharge plan home. Addendum: 04/06/20 at 1537 by Quin MCMANUS Amended: Links added.
[2020-04-06 17:00] VITALS: BP 145/67
--- NOTE | 2020-04-06 18:04 | NUR ---
DR ADAIR MAKI
[2020-04-06] MEDS: ACETAMINOPHEN 325 MG TAB PO PRN (18:37)
--- NOTE | 2020-04-06 19:45 | NUR ---
Opening Shift Note Assumed care of patient. Awake, alert and oriented 3-4. Periods of confusion. Sitter is at bedside. Fall precautions in place. No S/S of distress/SOB or pain at this time. Pt is on RA with even and unlabored respirations. Instructed on POC and to call for assist PRN. Bed locked, in lowest position, call light within reach, side rails up x2. Will continue to monitor for changes Q1hr and PRN.
[2020-04-06] MEDS: ISOSORBIDE MONONITRATE IR 20 MG TAB PO SCH (21:43)
[2020-04-06] MEDS: ATORVASTATIN 20 MG TAB PO SCH (21:43)
[2020-04-06 22:00] VITALS: BP 139/65
[2020-04-07] MEDS: ACCU-CHEK COMFORT CURVE STRIP VI SCH ×4 (00:01→17:47)
[2020-04-07] MEDS: PIPERACILLIN-TAZOB 2.25GM 50 ML IV SCH ×4 (00:01→17:43)
[2020-04-07] MEDS: SODIUM CHLORIDE 0.9% 1,000 ML IV SCH ×2 (02:04→22:14)
--- NOTE | 2020-04-07 03:20 | NUR ---
Pt stating that she feels "shakey like my blood sugar bottomed out" BS 121. Gave pt Tylenol due to pain 09/16. Will continue to monitor
[2020-04-07] MEDS: ACETAMINOPHEN 325 MG TAB PO PRN (03:29)
--- NOTE | 2020-04-07 03:30 | NUR ---
IV insertion IV access obtained, via clean sterile technique by inserting 20 gauge catheter at right forearm after 1 attempt. IV secured properly. No trauma to site. Patient tolerated procedure well.
[2020-04-07 05:00] VITALS: BP 166/80
[2020-04-07] MEDS: prednisoLONE ACETATE 1% OPTH SUSP 5ML EACHEYE SCH ×4 (05:38→22:14)
[2020-04-07] MEDS: InsuLIN REG 1unit/0.01ml Soln (100units/ml) SC SCH ×4 (05:38→17:56)
[2020-04-07] MEDS: hydrALAZINE HCL 25 MG TAB PO PRN ×2 (05:48→17:42)
[2020-04-07 06:45] LABS: Basophils # (auto) 0 10 ^3/uL (0-0.2); Basophils % (auto) 0.8 % (0.0-2.0); Eosinophils # (auto) 0.4 10 ^3/uL (0-0.8); Eosinophils % (auto) 7.2 % (0.0-7.0); Hematocrit 35.5 % (36.0-46.0); Hemoglobin 12.2 g/dL (12.2-16.2); Lymphocytes # (auto) 1.5 10 ^3/uL (0.4-5.4); Lymphocytes % (auto) 26.9 % (10.0-50.0); Mean Corpuscular Hemoglobin 29.4 pg (28.0-32.0); Mean Corpuscular Hgb Conc. 34.3 g/dL (32.0-36.0); Mean Corpuscular Volume 85.7 fL (80.0-100.0); Monocytes # (auto) 0.5 10 ^3/uL (0-1.3); Monocytes % (auto) 9.6 % (0.0-12.0); Neutrophils % (auto) 55.5 % (37.0-80.0); Platelet Count (auto) 211 10^3/uL (140-450); Red Blood Cells 4.15 10^6/uL (4.0-5.20); Red Cell Distribution Width 13.6 % (11.8-14.3); White Blood Cell 5.4 10^3/uL (4.4-10.8)
[2020-04-07 07:05] LABS: Albumin 3.1 g/dL (3.4-5.0); Calcium 9.1 mg/dL (8.5-10.1); Potassium 3.8 mmol/L (3.5-5.1)
[2020-04-07 07:07] LABS: BUN/Creatinine Ratio 16.8
[2020-04-07 07:10] LABS: Bilirubin, Total 0.6 mg/dL (0.2-1.0); Total Protein 6.5 g/dL (6.4-8.2)
[2020-04-07] MEDS: HYDROcodone-ACET 5/325MG TAB PO PRN ×2 (08:23→14:36)
[2020-04-07 09:00] VITALS: BP 128/70
[2020-04-07] MEDS ORDERED: IOHEXOL 350 MG/ML 100ML IJ ONE ×2 (09:12→09:34)
--- NOTE | 2020-04-07 09:26 | NUR ---
re-assessment Per consult [facility] for PT and safety. Benita alvarez daughter has been read a list of medicare providers. Per Benita Norris to provide service. MD order has been sent to [facility]. Per Thang service will start within 24 to 48 hours of discharge. Waiting on discharge now. Addendum: 04/07/20 at 0935 by Quin Edward Amended: Links added.
[2020-04-07] MEDS: ASPirin 81 mg TAB PO SCH (10:30)
[2020-04-07] MEDS: ISOSORBIDE MONONITRATE IR 20 MG TAB PO SCH ×2 (10:31→22:00)
[2020-04-07] MEDS: PANTOPRAZOLE 40 MG TAB PO SCH (10:33)
[2020-04-07] MEDS: amLODIPine BESYLATE 5 MG TAB PO SCH (10:34)
[2020-04-07] MEDS: MULTIPLE VITAMINS W/ MINERALS TAB PO SCH (10:35)
[2020-04-07] MEDS: CLOPIDOGREL BISULFATE 75 MG TAB PO SCH (10:35)
[2020-04-07] MEDS: LISINOPRIL 10 MG TAB PO SCH (10:35)
[2020-04-07] MEDS: METOPROLOL TARTRATE 25 MG TAB PO SCH ×2 (10:35→22:15)
[2020-04-07 12:00] VITALS: BP 149/69
--- NOTE | 2020-04-07 14:32 | NUR ---
Nutrition Followup Notes Wt: 75.0 kg Pt was sleeping when rounded this am. per records pt s/p CVA with visual disturbances. pt is currently on CCHO 45 gm cardiac pureed diet with adequate PO of 75% x 3 per RN doc Est energy needs 2714-8342 kcal (20-23 kcal/kg BW 76.6kg) Est protein needs 50-65g (1-1.3g/kg BW 50kg IBW) Will reassess prn. LABS: BUN 23 H CREAT 1.37 H GLU 129 H ALB 3.1 L GI: Pt with no BM, reported per RN note BS: 19 mod risk. Refer to wound assessment report for full details. PES: Inadequate oral intake aeb pt with no diet order r/t current medical condition Impaired swallowing ability aeb pt with a consult for dysphagia r/t current medical condition Comments: Will continue monitor PO intake, skin status. F/u high 2-3 days 1) consider Glucerna 1 carton bid if PO is low. 2) refer to CDE on DC. 3) continue current plan of care
[2020-04-07] MEDS ORDERED: HYDROcodone-ACET 10/325MG TAB PO ONE (15:15)
[2020-04-07 17:00] VITALS: BP 154/84
[2020-04-07] MEDS: LORazepam 0.5 MG TAB PO PRN (17:43)
[2020-04-07 18:43] VITALS: BP 120/54
[2020-04-07] MEDS: HYDROcodone-ACET 10/325MG TAB PO PRN (20:18)
[2020-04-07 22:03] VITALS: BP 122/57
[2020-04-07] MEDS: ATORVASTATIN 20 MG TAB PO SCH (22:15)
[2020-04-08] MEDS: ACCU-CHEK COMFORT CURVE STRIP VI SCH ×4 (00:21→17:37)
[2020-04-08] MEDS: PIPERACILLIN-TAZOB 2.25GM 50 ML IV SCH ×4 (00:21→18:18)
[2020-04-08] MEDS: hydrALAZINE HCL 25 MG TAB PO PRN ×2 (04:10→12:18)
[2020-04-08] MEDS: SODIUM CHLORIDE 0.9% 1,000 ML IV SCH ×2 (04:11→17:36)
[2020-04-08 05:00] VITALS: BP 170/82
[2020-04-08] MEDS: prednisoLONE ACETATE 1% OPTH SUSP 5ML EACHEYE SCH ×4 (05:38→21:12)
[2020-04-08] MEDS: InsuLIN REG 1unit/0.01ml Soln (100units/ml) SC SCH ×5 (06:02→21:37)
[2020-04-08 06:55] LABS: Basophils # (auto) 0 10 ^3/uL (0-0.2); Basophils % (auto) 0.6 % (0.0-2.0); Eosinophils # (auto) 0.3 10 ^3/uL (0-0.8); Eosinophils % (auto) 4.4 % (0.0-7.0); Hemoglobin 13.1 g/dL (12.2-16.2); Lymphocytes # (auto) 1.2 10 ^3/uL (0.4-5.4); Lymphocytes % (auto) 16.8 % (10.0-50.0); Mean Corpuscular Hemoglobin 28.5 pg (28.0-32.0); Mean Corpuscular Hgb Conc. 33.6 g/dL (32.0-36.0); Mean Corpuscular Volume 84.9 fL (80.0-100.0); Monocytes # (auto) 0.6 10 ^3/uL (0-1.3); Monocytes % (auto) 7.5 % (0.0-12.0); Neutrophils # (auto) 5.2 10 ^3/uL (1.6-8.6); Neutrophils % (auto) 70.7 % (37.0-80.0); Platelet Count (auto) 247 10^3/uL (140-450); Red Blood Cells 4.59 10^6/uL (4.0-5.20); Red Cell Distribution Width 13.8 % (11.8-14.3); White Blood Cell 7.4 10^3/uL (4.4-10.8)
--- NOTE | 2020-04-08 07:08 | NUR ---
OPENING SHIFT NOTE Assumed care of patient from shift superintendent caustic cresylate RN. Sitter is at bedside. Patient is alert and oriented x4, patient reports periods of confusion and that her vision is improving, no signs of distress noted and patient denies pain. She was updated on the plan of care and verbalized understanding. Bed is locked, in the lowest position, side rails up x2 and call light is in reach. She was encouraged to call for assistance as needed.
[2020-04-08 07:15] LABS: INR 0.97 (0.9-1.15); Partial Thromboplastin Time 26.9 sec (23.0-31.2)
[2020-04-08 07:19] LABS: Potassium 3.7 mmol/L (3.5-5.1)
[2020-04-08 07:32] LABS: BUN/Creatinine Ratio 14.4; Calcium 8.9 mg/dL (8.5-10.1)
[2020-04-08 09:00] VITALS: BP 159/72
[2020-04-08] MEDS: ASPirin 81 mg TAB PO SCH (09:30)
[2020-04-08] MEDS: CLOPIDOGREL BISULFATE 75 MG TAB PO SCH (09:31)
[2020-04-08] MEDS: amLODIPine BESYLATE 5 MG TAB PO SCH (09:31)
[2020-04-08] MEDS: ISOSORBIDE MONONITRATE IR 20 MG TAB PO SCH ×2 (09:31→21:09)
[2020-04-08] MEDS: METOPROLOL TARTRATE 25 MG TAB PO SCH ×2 (09:31→21:11)
[2020-04-08] MEDS: MULTIPLE VITAMINS W/ MINERALS TAB PO SCH (09:31)
[2020-04-08] MEDS: LISINOPRIL 10 MG TAB PO SCH (09:32)
[2020-04-08] MEDS: PANTOPRAZOLE 40 MG TAB PO SCH (09:32)
[2020-04-08 12:53] VITALS: BP 140/66
[2020-04-08 16:53] VITALS: BP 151/80
[2020-04-08 20:00] VITALS: BP 160/68
[2020-04-08] MEDS: ACETAMINOPHEN 325 MG TAB PO PRN (21:10)
[2020-04-08] MEDS: ATORVASTATIN 20 MG TAB PO SCH (21:10)
[2020-04-08 22:00] VITALS: BP 125/71
[2020-04-09] VITALS (13 sets, daily range): BP systolic 146–185; BP diastolic 76–90
[2020-04-09] MEDS: LABETALOL HCL 5 MG/ML 4ML SYRINGE IV PRN (05:11)
[2020-04-09] MEDS: prednisoLONE ACETATE 1% OPTH SUSP 5ML EACHEYE SCH ×4 (06:00→21:29)
[2020-04-09] MEDS: ACCU-CHEK COMFORT CURVE STRIP VI SCH ×4 (06:00→17:34)
[2020-04-09] MEDS: InsuLIN REG 1unit/0.01ml Soln (100units/ml) SC SCH ×3 (06:00→17:58)
[2020-04-09] MEDS: SODIUM CHLORIDE 0.9% 1,000 ML IV SCH (06:40)
[2020-04-09] MEDS: PIPERACILLIN-TAZOB 2.25GM 50 ML IV SCH ×3 (06:45→12:09)
--- NOTE | 2020-04-09 08:40 | NUR ---
White Spooler Took patient down to laborer pipelines for carotid angio in bed.
[2020-04-09] MEDS ORDERED: ANGIOMAX 250 MG VIAL IV ONE (09:23)
[2020-04-09] MEDS ORDERED: SODIUM CHL 0.9% 0 ML ONE (09:24)
[2020-04-09] MEDS ORDERED: GLYCOPYRROLATE 0.2 MG/ML 1ML VIAL ONE (09:24)
[2020-04-09] MEDS ORDERED: PHENYLEPHRINE HCL 10 MG/ML VL ONE (09:24)
[2020-04-09] MEDS: ISOSORBIDE MONONITRATE IR 20 MG TAB PO SCH ×2 (09:46→21:29)
[2020-04-09] MEDS: ASPirin 81 mg TAB PO SCH (09:46)
[2020-04-09] MEDS: MULTIPLE VITAMINS W/ MINERALS TAB PO SCH (09:47)
[2020-04-09] MEDS: LISINOPRIL 10 MG TAB PO SCH (09:47)
[2020-04-09] MEDS: CLOPIDOGREL BISULFATE 75 MG TAB PO SCH (09:47)
[2020-04-09] MEDS: METOPROLOL TARTRATE 25 MG TAB PO SCH ×2 (09:47→21:30)
[2020-04-09] MEDS: amLODIPine BESYLATE 5 MG TAB PO SCH (09:47)
[2020-04-09] MEDS: PANTOPRAZOLE 40 MG TAB PO SCH (09:47)
[2020-04-09] MEDS ORDERED: DOPamine 1600MCG/ML D5W 0 ML IV ONE (09:52)
[2020-04-09] MEDS ORDERED: ATROPINE SULF 1 MG/10ml SYR ONE (09:52)
[2020-04-09] MEDS ORDERED: LIDOCAINE 2%HCL (LOCAL ANESTH.) INJ 20ML MDV ONE (09:55)
[2020-04-09] MEDS ORDERED: IODIXANOL 320MG/ML 100ML BTL IV ONE (10:19)
[2020-04-09] MEDS: hydrALAZINE HCL 25 MG TAB PO PRN (11:16)
--- NOTE | 2020-04-09 19:20 | NUR ---
Opening Shift Note Assumed care of patient after receiving report. Patient is awake and alert with no S/S of distress/SOB or pain. Call light within reach, bed in lowest locked position x2 side rails, HOB semi fowlers, sitter at bedside for safety. Instructed on POC and to call for assist PRN, will continue to monitor for changes Q1hr and PRN.
[2020-04-09] MEDS: ENOXAPARIN SOD 80 MG/0.8ML SYRINGE SC SCH (21:30)
[2020-04-09] MEDS: ATORVASTATIN 20 MG TAB PO SCH (21:30)
[2020-04-10] MEDS: InsuLIN REG 1unit/0.01ml Soln (100units/ml) SC SCH ×5 (00:15→23:36)
[2020-04-10] MEDS: ACCU-CHEK COMFORT CURVE STRIP VI SCH ×5 (00:17→23:36)
--- NOTE | 2020-04-10 03:01 | NUR ---
Noncompliant with tele Patient continues to take off telemetry monitoring box. Patient was educated on reason for telemetry monitoring. Patient is confused and refusing to wear telemetry box. Will attempt again to place patient back on monitor.
[2020-04-10] MEDS: LORazepam 0.5 MG TAB PO PRN (04:07)
--- NOTE | 2020-04-10 05:00 | NUR ---
PT REFUSED 0500 VITALS RN NOTIFIED
[2020-04-10] MEDS: prednisoLONE ACETATE 1% OPTH SUSP 5ML EACHEYE SCH ×4 (06:00→21:48)
--- NOTE | 2020-04-10 07:00 | NUR ---
OPENING SHIFT NOTE RECEIVED REPORT ON THE PATIENT. AWAKE LYING IN BED. PATIENT SHOWS NO SIGNS OF DISTRESS AT THIS TIME. DISCUSSED THE PLAN OF CARE WITH THE PATIENT. PATIENT IS REFUSING THE ASSESSMENT AND VITAL SIGNS TO BE CHECKED. BED IN LOWEST POSITION, SIDE RAILS UP X2, AND THE CALL LIGHT IS WITHIN REACH.
[2020-04-10 09:00] VITALS: BP 160/80
--- NOTE | 2020-04-10 09:44 | NUR ---
PATIENT REFUSING ALL MORNING MEDS.
[2020-04-10] MEDS: ISOSORBIDE MONONITRATE IR 20 MG TAB PO SCH ×2 (10:13→21:48)
[2020-04-10] MEDS: MULTIPLE VITAMINS W/ MINERALS TAB PO SCH (10:13)
[2020-04-10] MEDS: PANTOPRAZOLE 40 MG TAB PO SCH (10:13)
[2020-04-10] MEDS: METOPROLOL TARTRATE 25 MG TAB PO SCH ×2 (10:13→21:49)
[2020-04-10] MEDS: LISINOPRIL 10 MG TAB PO SCH (10:14)
[2020-04-10] MEDS: ENOXAPARIN SOD 80 MG/0.8ML SYRINGE SC SCH ×2 (10:14→21:49)
--- NOTE | 2020-04-10 10:44 | NUR ---
ABLE TO DO THE PATIENTS VITAL SIGNS AND PATIENT TOOK MEDICATIONS.
--- NOTE | 2020-04-10 10:45 | NUR ---
DR FLEMING AT BEDSIDE. NEW ORDERS RECEIVED.
--- NOTE | 2020-04-10 16:26 | NUR ---
Nutrition Assessment Notes Please refer to link for full assessment notes. Est Energy needs: 1344-9422 kcals (17-20 kcal/kgBW) Est Protein needs: 75-83 gms/day (1.0-1.1 gm/kgBW) Will continue to monitor and reassess prn. Addendum: 04/10/20 at [address] Amended: Links added.
[2020-04-10 17:00] VITALS: BP 189/96
--- NOTE | 2020-04-10 17:02 | NUR ---
D/C Planning Patient health plan is No Longer Medicare. Patient is health plan is with [facility]. [facility] is not contracted with [facility] Order was redirected to [facility] . Faxed clinical information to [facility] Requesting authorization. Per Marina with [facility] patient has been accepted and service to start within 24-48hrs upon d/c day.
[2020-04-10] MEDS ORDERED: hydrALAZINE HCL 25 MG TAB PO PRN (18:15)
[2020-04-10] MEDS: hydrALAZINE HCL 25 MG TAB PO PRN (18:47)
--- NOTE | 2020-04-10 19:45 | NUR ---
Opening Shift Note Assumed care of patient, AOX2. Sitter at bedside for safety. No S/S of distress/SOB or pain. Fall and safety precautions in place. Instructed on POC and to call for assist PRN, patient verbalized understanding and in agreement. Patient refusing IV access and tele monitoring. Will attempt later. Will continue to monitor for changes Q1hr and PRN.
[2020-04-10] MEDS: ATORVASTATIN 20 MG TAB PO SCH (21:49)
[2020-04-10 22:03] VITALS: BP 133/61
--- NOTE | 2020-04-10 22:40 | NUR ---
PATIENT TRANSFERRED ROOM PER SALES AND MARKETING DIRECTOR, PATIENT TO BE TRANSFERRED TO ROOM. AT THIS TIME, PATIENT TRANSFERRED FROM ROOM 294B TO ROOM 212A WITH ALL BELONGINGS WITH NO S/S OF DISTRESS. REPORT GIVEN TO NEW PRIMARY RN.
--- NOTE | 2020-04-10 23:38 | NUR ---
Patient refusing IV: Patient refusing IV insertion at this time. Resting in bed with breaths even and unlabored. Educated the patient about the use of IV and need for IV while in the hospital. Patient still refused and would prefer to sleep. Will try again later. Sitter at the bed side and bed alarm is armed.
--- NOTE | 2020-04-11 02:00 | NUR ---
PATIENT CONFUSED ,AGITATED AND YELLING ABOUT CALLING A FAMILY MEMBER AT 0200 RN NOTIFIED .
--- NOTE | 2020-04-11 02:10 | NUR ---
PATIENT CONFUSED AND AGITATED PATIENT STATED ARE YOU GOING TO PITCH ME OR HIT ME . RN NOTIFIED
--- NOTE | 2020-04-11 04:13 | NUR ---
Patient agitated: Patient screaming yelling at this RN stating "Get out of my room! I dont want you in here! I haven't slept all night and I want to get some sleep!" Patient refusing color television console monitor at this time yelling "Get the hell away from me!" when attempting to reapply color television console monitor. Patient refused vital signs according to Sitter at the bedside. Patient educated about the importance of keeping color television console monitor on and the need for vital signs. Patient still refused at this time. Will attempt again at a later time.
[2020-04-11] MEDS: InsuLIN REG 1unit/0.01ml Soln (100units/ml) SC SCH ×3 (06:00→17:53)
[2020-04-11] MEDS: ACCU-CHEK COMFORT CURVE STRIP VI SCH ×3 (06:00→17:46)
[2020-04-11] MEDS: prednisoLONE ACETATE 1% OPTH SUSP 5ML EACHEYE SCH ×4 (06:24→22:54)
[2020-04-11] MEDS: HALOPERIDOL LACTATE 5 MG/ML INJ VIAL IM PRN (06:25)
--- NOTE | 2020-04-11 06:27 | NUR ---
Haldol: Patient was agitated screaming at nurses to try and get out of the bed stating "I have to go and get out of here! I want breakfast! Get away from me!" Patient throwing call light and agitated with environment. Haldol administered for agitation as ordered.
--- NOTE | 2020-04-11 07:35 | NUR ---
Opening Shift Note Assumed care of patient. Patient is resting with eyes closed. Breathing is even and unlabored. No S/S of distress/SOB or pain. Bed is in lowest, locked position with side rails up x 2 and call light within reach. Sitter is at bedside. Will continue to monitor for changes Q1hr and PRN.
[2020-04-11 09:00] VITALS: BP 125/50
[2020-04-11 09:36] LABS: Basophils # (auto) 0.1 10 ^3/uL (0-0.2); Basophils % (auto) 1.3 % (0.0-2.0); Eosinophils # (auto) 0.4 10 ^3/uL (0-0.8); Eosinophils % (auto) 5.6 % (0.0-7.0); Hematocrit 35.5 % (36.0-46.0); Hemoglobin 11.8 g/dL (12.2-16.2); Lymphocytes # (auto) 1.6 10 ^3/uL (0.4-5.4); Lymphocytes % (auto) 21.5 % (10.0-50.0); Mean Corpuscular Hemoglobin 28.7 pg (28.0-32.0); Mean Corpuscular Hgb Conc. 33.4 g/dL (32.0-36.0); Mean Corpuscular Volume 85.9 fL (80.0-100.0); Monocytes # (auto) 0.7 10 ^3/uL (0-1.3); Monocytes % (auto) 9.2 % (0.0-12.0); Neutrophils # (auto) 4.6 10 ^3/uL (1.6-8.6); Neutrophils % (auto) 62.4 % (37.0-80.0); Nucleated Red Blood Cells % 0.1 %; Platelet Count (auto) 245 10^3/uL (140-450); Red Blood Cells 4.13 10^6/uL (4.0-5.20); Red Cell Distribution Width 13.8 % (11.8-14.3); White Blood Cell 7.3 10^3/uL (4.4-10.8)
[2020-04-11 09:51] LABS: BUN/Creatinine Ratio 17.4; Calcium 8.7 mg/dL (8.5-10.1); Potassium 4.1 mmol/L (3.5-5.1)
[2020-04-11] MEDS: MULTIPLE VITAMINS W/ MINERALS TAB PO SCH (10:00)
[2020-04-11] MEDS: METOPROLOL TARTRATE 25 MG TAB PO SCH ×2 (10:00→22:53)
[2020-04-11] MEDS: ENOXAPARIN SOD 80 MG/0.8ML SYRINGE SC SCH (10:00)
[2020-04-11] MEDS: ISOSORBIDE MONONITRATE IR 20 MG TAB PO SCH ×2 (10:00→22:54)
[2020-04-11] MEDS: LISINOPRIL 10 MG TAB PO SCH (10:00)
[2020-04-11] MEDS: PANTOPRAZOLE 40 MG TAB PO SCH (10:00)
--- NOTE | 2020-04-11 10:34 | NUR ---
DR FLEMING AT BEDSIDE DR STATED THAT A SOCIAL SERVICE CONSULT WILL BE PLACED ON MONDAY FOR SPECIALIZED PLACEMENT.
--- NOTE | 2020-04-11 11:00 | NUR ---
Meds held Patient still resting with respirations even, unlabored and vital signs stable. Unable to arouse enough to take oral medications, meds held.
[2020-04-11 13:00] VITALS: BP 125/66
[2020-04-11 14:11] LABS: Partial Thromboplastin Time 28.8 sec (23.0-31.2)
[2020-04-11 17:00] VITALS: BP 123/76
[2020-04-11] MEDS ORDERED: WARFARIN SODIUM 5 MG TAB PO ONE (17:00)
--- NOTE | 2020-04-11 19:15 | NUR ---
Closing Shift Note Patient resting in bed. No distress noted. Report given. Will endorse care to the overnight associate RN.
[2020-04-11 22:00] VITALS: BP 120/80
[2020-04-11] MEDS: ATORVASTATIN 20 MG TAB PO SCH (22:52)
[2020-04-12] MEDS: ACCU-CHEK COMFORT CURVE STRIP VI SCH ×5 (00:24→23:33)
[2020-04-12 05:00] VITALS: BP 138/71
[2020-04-12] MEDS: prednisoLONE ACETATE 1% OPTH SUSP 5ML EACHEYE SCH ×4 (05:30→21:34)
[2020-04-12] MEDS: InsuLIN REG 1unit/0.01ml Soln (100units/ml) SC SCH ×5 (05:30→23:32)
[2020-04-12 06:40] LABS: Basophils # (auto) 0.1 10 ^3/uL (0-0.2); Eosinophils # (auto) 0.5 10 ^3/uL (0-0.8); Eosinophils % (auto) 6.5 % (0.0-7.0); Hemoglobin 12.3 g/dL (12.2-16.2); Lymphocytes % (auto) 27.1 % (10.0-50.0); Mean Corpuscular Hemoglobin 28.6 pg (28.0-32.0); Mean Corpuscular Hgb Conc. 33.1 g/dL (32.0-36.0); Mean Corpuscular Volume 86.4 fL (80.0-100.0); Monocytes # (auto) 0.7 10 ^3/uL (0-1.3); Monocytes % (auto) 9.8 % (0.0-12.0); Neutrophils % (auto) 55.6 % (37.0-80.0); Nucleated Red Blood Cells % 0.1 %; Platelet Count (auto) 241 10^3/uL (140-450); Red Blood Cells 4.29 10^6/uL (4.0-5.20); White Blood Cell 7.3 10^3/uL (4.4-10.8)
[2020-04-12 06:58] LABS: INR 0.98 (0.9-1.15); Partial Thromboplastin Time 26.2 sec (23.0-31.2)
[2020-04-12 07:00] LABS: Calcium 8.8 mg/dL (8.5-10.1); Potassium 4.4 mmol/L (3.5-5.1)
--- NOTE | 2020-04-12 07:13 | NUR ---
closing note pt resting in semi fowlers with HOB at 30 degrees. respirations even nonlabored on room air. no s/s of pain or distress. Endorsed care to day shift JOSE Gonzalez.
--- NOTE | 2020-04-12 07:15 | NUR ---
Opening Shift Note Assumed care of patient, awake and alert 3. She's alert to self, place, president and time but not situation. Respirations are even and non-labored. No S/S of distress/SOB or pain. Bed is in lowest and locked position, side rails up x 2 and call light within reach. Sitter at bedside for safety. Instructed on POC and to call for assist PRN, will continue to monitor for changes Q1hr and PRN.
[2020-04-12 09:00] VITALS: BP 139/69
[2020-04-12] MEDS: MULTIPLE VITAMINS W/ MINERALS TAB PO SCH (10:23)
[2020-04-12] MEDS: PANTOPRAZOLE 40 MG TAB PO SCH (10:23)
[2020-04-12] MEDS: METOPROLOL TARTRATE 25 MG TAB PO SCH ×2 (10:24→21:35)
[2020-04-12] MEDS: LISINOPRIL 10 MG TAB PO SCH (10:25)
[2020-04-12] MEDS: ENOXAPARIN SOD 80 MG/0.8ML SYRINGE SC SCH (10:26)
[2020-04-12] MEDS: ISOSORBIDE MONONITRATE IR 20 MG TAB PO SCH ×2 (10:34→21:35)
[2020-04-12] MEDS: HYDROcodone-ACET 10/325MG TAB PO PRN (11:23)
[2020-04-12 13:00] VITALS: BP 107/63
[2020-04-12] MEDS: ACETAMINOPHEN 325 MG TAB PO PRN (15:41)
--- NOTE | 2020-04-12 15:41 | NUR ---
Pain reported Patient reported 7/10 pain in the neck and left shoulder. Per order, patient has morphine available. Patient stated that she preferred to take the acetaminophen instead of the morphine at this time. Patient medicated per request.
[2020-04-12 17:00] VITALS: BP 134/80
[2020-04-12] MEDS ORDERED: WARFARIN SODIUM 2 MG TAB PO ONE (17:00)
--- NOTE | 2020-04-12 19:10 | NUR ---
ASSUMED CARE, PT. AWAKE, NO C/O PAIN, NO SOB.
[2020-04-12] MEDS: ATORVASTATIN 20 MG TAB PO SCH (21:35)
[2020-04-12 22:00] VITALS: BP 131/63
[2020-04-13] MEDS: ACETAMINOPHEN 325 MG TAB PO PRN (01:52)
[2020-04-13 05:00] VITALS: BP 143/44
[2020-04-13] MEDS: prednisoLONE ACETATE 1% OPTH SUSP 5ML EACHEYE SCH ×4 (05:05→22:24)
[2020-04-13] MEDS: ACCU-CHEK COMFORT CURVE STRIP VI SCH ×4 (05:05→23:59)
[2020-04-13] MEDS: InsuLIN REG 1unit/0.01ml Soln (100units/ml) SC SCH ×3 (05:05→18:10)
[2020-04-13 07:19] LABS: Calcium 9.3 mg/dL (8.5-10.1); Potassium 4.8 mmol/L (3.5-5.1)
[2020-04-13 07:21] LABS: BUN/Creatinine Ratio 19.8
[2020-04-13 07:23] LABS: Basophils # (auto) 0.1 10 ^3/uL (0-0.2); Basophils % (auto) 1.1 % (0.0-2.0); Eosinophils # (auto) 0.5 10 ^3/uL (0-0.8); Eosinophils % (auto) 6.2 % (0.0-7.0); Hematocrit 36.2 % (36.0-46.0); Hemoglobin 12.1 g/dL (12.2-16.2); Lymphocytes % (auto) 25.3 % (10.0-50.0); Mean Corpuscular Hgb Conc. 33.4 g/dL (32.0-36.0); Mean Corpuscular Volume 86.7 fL (80.0-100.0); Monocytes # (auto) 0.7 10 ^3/uL (0-1.3); Monocytes % (auto) 9.1 % (0.0-12.0); Neutrophils # (auto) 4.6 10 ^3/uL (1.6-8.6); Neutrophils % (auto) 58.3 % (37.0-80.0); Platelet Count (auto) 237 10^3/uL (140-450); Red Blood Cells 4.17 10^6/uL (4.0-5.20); Red Cell Distribution Width 13.9 % (11.8-14.3); White Blood Cell 7.8 10^3/uL (4.4-10.8)
[2020-04-13 07:25] LABS: INR 1.17 (0.9-1.15); Partial Thromboplastin Time 29.4 sec (23.0-31.2)
[2020-04-13 07:55] VITALS: BP 158/71
--- NOTE | 2020-04-13 07:55 | NUR ---
Patient eating breakfast with sitter at bedside. Patient stable at this time.
--- NOTE | 2020-04-13 08:59 | NUR ---
D/C planning Received a call from Sheree with [facility] advising me patient Primary insurance is Medicare and secondary is [facility] Medical. Order was redirected back to [facility] as first choice. Contact Marina with [facility] to cancel order. [facility] will see the patient within 24-48hrs upon d/c day.
[2020-04-13 09:00] VITALS: BP 158/71
[2020-04-13] MEDS: MULTIPLE VITAMINS W/ MINERALS TAB PO SCH (09:04)
[2020-04-13] MEDS: PANTOPRAZOLE 40 MG TAB PO SCH (09:04)
[2020-04-13] MEDS: METOPROLOL TARTRATE 25 MG TAB PO SCH ×2 (09:04→22:21)
[2020-04-13] MEDS: LISINOPRIL 10 MG TAB PO SCH (09:05)
[2020-04-13] MEDS: ENOXAPARIN SOD 80 MG/0.8ML SYRINGE SC SCH (09:05)
[2020-04-13] MEDS: ISOSORBIDE MONONITRATE IR 20 MG TAB PO SCH ×2 (09:05→22:20)
--- NOTE | 2020-04-13 09:05 | NUR ---
Scheduled medications given at this time. Patient stable with sitter at bedside.
[2020-04-13] MEDS: HYDROcodone-ACET 10/325MG TAB PO PRN (09:16)
--- NOTE | 2020-04-13 09:17 | NUR ---
Patient medicated for 5/10 pain in neck that radiates to left shoulder. Patient sitting on side of bed with sitter at bedside.
--- NOTE | 2020-04-13 09:45 | NUR ---
Patient stable with Dr. Foster and remi at bedside.
--- NOTE | 2020-04-13 11:01 | NUR ---
1100 04/13/20 - Faxed to [facility] transfer center at [phone], [facility] at [phone] 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 Also faxed to [facility] at requesting authorizations for facility and transportation. Pending review, acceptance, bed availability. Addendum: 04/13/20 at 1641 by Tania Turner RN CM 1530 04/13/20 - Received a called from [facility] transfer center coordinator Kymberly who stated they have a female bed on med surg, patient pending accepting physician. Contacted [facility] at [phone] placed patient on "will call list". Faxed Medicare form to [facility] at [phone].
--- NOTE | 2020-04-13 11:03 | NUR ---
Nutrition Followup Notes Pt wt is 77.1 kg Pt was sleeping with sitter at bedside when rounded this morning. Pt is with a 2gNa diet, appetite is good aeb ave 88% PO intake over 2 meals per RN doc. Pt with no s/s of distress. Est Energy needs: 1413-6186 kcals (17-20 kcal/kgBW) Est Protein needs: 75-83 gms/day (1.0-1.1 gm/kgBW) Will continue to monitor and reassess prn. LABS: BUN 34 H, CREAT 1.72 H, GFR 31 L, GLUC 114 H, ALB 3.1 L GI: Pt had 2 BM on 04/10 per RN doc. BS: 21 low risk. Refer to wound assessment report for full details. PES: 1) Obesity r/t energy intake in excess of energy needs aeb 182% IBW and BMI of 30.4 kg/m2 2) Altered nutrition related lab values r/t current/chronic medical condition aeb hyperglycemia, elev RFTs, hypoalbuminemia Comments Will continue to monitor PO status, skin status, pertinent labs and weight trends. Will f/u in 3-5 days. 1) Continue to carefully monitor pt PO intake to meet at least 75% of meals 2) Continue current plan of care
[2020-04-13] MEDS: CEPHALEXIN 250 MG CAP PO SCH ×4 (12:14→23:58)
--- NOTE | 2020-04-13 12:15 | NUR ---
Scheduled medication given per order. Checked blood sugar: 174 mg/dl - will cover per sliding scale. Patient stable with sitter at bedside. Addendum: 04/13/20 at 1229 by BENITO GIBBS RN RN Covered per sliding scale.
[2020-04-13 13:00] VITALS: BP 134/49
--- NOTE | 2020-04-13 13:50 | NUR ---
Social Service Order Cancelled social service order for SNF placement, new order for patient to be transferred to acute care facility. Addendum: 04/13/20 at 1354 by MARVIN AARON RN Order changed while covering for Kenna GARCIA who is at lunch.
--- NOTE | 2020-04-13 14:00 | NUR ---
Patient sitting on side of bed with sitter at bedside. Patient stable at this time.
[2020-04-13] MEDS ORDERED: WARFARIN SODIUM 2.5 MG TAB PO ONE (17:00)
[2020-04-13 17:01] VITALS: BP 192/90
--- NOTE | 2020-04-13 18:05 | NUR ---
Scheduled medications given per order. Patient sitting on side of bed with sitter at bedside.
--- NOTE | 2020-04-13 18:10 | NUR ---
Checked blood sugar: 125 mg/dl - no coverage required. Patient stable throughout shift.
--- NOTE | 2020-04-13 19:30 | NUR ---
Opening Shift Note Assumed care of patient, awake and alert, oriented mostly to self only. Sitter at bedside for patient safety. No S/S of distress/SOB or pain. Instructed on POC and to call for assist PRN, will continue to monitor for changes Q1hr and PRN.
--- NOTE | 2020-04-13 21:50 | NUR ---
Nickie ( option 3) from [facility] called, updated with patient's status. Per Nickie, she will call back for updates. Care continued.
[2020-04-13 22:00] VITALS: BP 175/79
--- NOTE | 2020-04-13 22:00 | NUR ---
Dr. Hollingsworth called regarding patient having accepting neurologist in [facility], Dr. Plascencia. Will communicate to oncoming RN.
--- NOTE | 2020-04-13 22:15 | NUR ---
Nickie ( option 3) from [facility] called back re: patient having accepting neurologist Dr. Plascencia. Nickie will fax return agreement acknowledgement to be signed by this institutions' transferring MD. [facility] also will need authorization form patient's insurance [employer]. Communication will be relayed to oncoming RN, to relay information to sample case porter on the case. Care continued.
[2020-04-13] MEDS: ATORVASTATIN 20 MG TAB PO SCH (22:20)
[2020-04-13] MEDS: LABETALOL HCL 5 MG/ML 4ML SYRINGE IV PRN (22:24)
[2020-04-14] MEDS: HALOPERIDOL LACTATE 5 MG/ML INJ VIAL IM PRN (00:49)
[2020-04-14] MEDS: CEPHALEXIN 250 MG CAP PO SCH ×3 (05:31→17:42)
[2020-04-14] MEDS: prednisoLONE ACETATE 1% OPTH SUSP 5ML EACHEYE SCH ×4 (05:31→22:35)
[2020-04-14] MEDS: hydrALAZINE HCL 25 MG TAB PO PRN (05:32)
[2020-04-14] MEDS: ACCU-CHEK COMFORT CURVE STRIP VI SCH ×3 (05:32→17:52)
[2020-04-14] MEDS: InsuLIN REG 1unit/0.01ml Soln (100units/ml) SC SCH ×4 (05:36→17:52)
[2020-04-14 05:44] VITALS: BP 154/65
[2020-04-14 06:02] LABS: Basophils # (auto) 0 10 ^3/uL (0-0.2); Basophils % (auto) 0.6 % (0.0-2.0); Eosinophils # (auto) 0.4 10 ^3/uL (0-0.8); Eosinophils % (auto) 4.5 % (0.0-7.0); Hematocrit 35.1 % (36.0-46.0); Hemoglobin 11.9 g/dL (12.2-16.2); Lymphocytes # (auto) 1.7 10 ^3/uL (0.4-5.4); Lymphocytes % (auto) 22.2 % (10.0-50.0); Mean Corpuscular Hemoglobin 29.2 pg (28.0-32.0); Mean Corpuscular Hgb Conc. 33.9 g/dL (32.0-36.0); Mean Corpuscular Volume 86.1 fL (80.0-100.0); Monocytes # (auto) 0.8 10 ^3/uL (0-1.3); Monocytes % (auto) 9.7 % (0.0-12.0); Neutrophils # (auto) 4.9 10 ^3/uL (1.6-8.6); Nucleated Red Blood Cells % 0.1 %; Platelet Count (auto) 249 10^3/uL (140-450); Red Blood Cells 4.07 10^6/uL (4.0-5.20); Red Cell Distribution Width 13.5 % (11.8-14.3); White Blood Cell 7.8 10^3/uL (4.4-10.8)
[2020-04-14 06:15] LABS: INR 1.75 (0.9-1.15)
[2020-04-14 06:24] LABS: Calcium 9.5 mg/dL (8.5-10.1); Potassium 5.1 mmol/L (3.5-5.1)
[2020-04-14 06:28] LABS: BUN/Creatinine Ratio 17.5
--- NOTE | 2020-04-14 07:29 | NUR ---
Report given to JOSE Pierson.
[2020-04-14 08:20] VITALS: BP 136/60
--- NOTE | 2020-04-14 08:20 | NUR ---
Patient out-of-bed to bedside commode; then pivoted to sit in chair at bedside. Patient stable at this time.
[2020-04-14 08:42] VITALS: BP 130/60
[2020-04-14] MEDS: PANTOPRAZOLE 40 MG TAB PO SCH (09:20)
[2020-04-14] MEDS: MULTIPLE VITAMINS W/ MINERALS TAB PO SCH (09:20)
[2020-04-14] MEDS: LISINOPRIL 10 MG TAB PO SCH (09:21)
[2020-04-14] MEDS: METOPROLOL TARTRATE 25 MG TAB PO SCH ×2 (09:21→22:35)
[2020-04-14] MEDS: ENOXAPARIN SOD 80 MG/0.8ML SYRINGE SC SCH ×2 (09:22→22:35)
--- NOTE | 2020-04-14 09:24 | NUR ---
Scheduled medications given per order. Patient sitting in bed with no distress noted. Patient stable.
--- NOTE | 2020-04-14 11:32 | NUR ---
1000 04/14/20 Faxed to [facility] transfer center at [phone] COVID 19 negative results, Spoke with building services coordinator Eve who acknowledged receiving faxed results, Eve also stated the [facility] transfer back agreement was faxed to [facility] nurse's station sometime last night. Spoke with nurse Kenna who stated she will get patient's signature and bring transfer back agreement to office.
--- NOTE | 2020-04-14 11:50 | NUR ---
Checked blood sugar: 217 mg/dl - will cover per sliding scale.
[2020-04-14] MEDS: ISOSORBIDE MONONITRATE IR 20 MG TAB PO SCH ×2 (12:48→22:00)
[2020-04-14 13:00] VITALS: BP 115/61
[2020-04-14] MEDS ORDERED: WARFARIN SODIUM 2.5 MG TAB PO ONE (17:00)
[2020-04-14] MEDS: HYDROcodone-ACET 10/325MG TAB PO PRN (17:43)
--- NOTE | 2020-04-14 17:52 | NUR ---
Checked blood sugar: 109 mg/dl - no coverage required. Scheduled medications given as well. Patient sitting in chair at bedside. Patient stable.
[2020-04-14 20:00] VITALS: BP 108/56
--- NOTE | 2020-04-14 20:00 | NUR ---
[facility] Received call from [facility], stating that bed is available for patient to be transferred; inquired if we will be able to set up transportation. Notified [facility] that social services assistant note from today does not indicated that transportation has been placed on will call. [facility] requests that social worker assistant call back tomorrow to arrange transportation.
--- NOTE | 2020-04-14 20:15 | NUR ---
CALL PLACED TO [facility] Called [facility] transportation unit ans spoke with Bekah. Informed her that [facility] has indeed been placed on will call and transportation will be arranged.
--- NOTE | 2020-04-14 20:50 | NUR ---
CALL TO [facility] Called [facility] to set up transportation. Requesting Medicare form be faxed and receiving unit/bed number. Will follow through with requests.
--- NOTE | 2020-04-14 21:15 | NUR ---
CALL TO [facility] Call placed to [facility] transfer unit. Spoke with Bekah, inquiring about bed number patient will be going to. Transferred to [facility] who states that she was not informed that transportation was able to be arranged and bed is no longer available. States she will work on another bed assignment and call back as soon as she has another bed.
[2020-04-14 21:30] VITALS: BP 108/56
--- NOTE | 2020-04-14 21:43 | NUR ---
[facility] Call placed to [facility] to notify that [facility] bed is no longer available and will call back to reschedule once bed is available.
[2020-04-14] MEDS ORDERED: ATORVASTATIN 20 MG TAB PO SCH (22:00)
--- NOTE | 2020-04-14 22:08 | NUR ---
[facility] Received call from [facility] stating that the assignment coordinator does not have a sitter available and that is causing a hold up on placement. requests that transportation be kept on will call and they will continue to work on a bed assignment.
[2020-04-15] MEDS: ACCU-CHEK COMFORT CURVE STRIP VI SCH ×4 (00:01→17:45)
[2020-04-15] MEDS: InsuLIN REG 1unit/0.01ml Soln (100units/ml) SC SCH ×4 (00:03→17:45)
[2020-04-15 04:30] VITALS: BP 113/85
[2020-04-15] MEDS: HYDROcodone-ACET 10/325MG TAB PO PRN (05:06)
[2020-04-15] MEDS: prednisoLONE ACETATE 1% OPTH SUSP 5ML EACHEYE SCH ×3 (05:16→17:44)
[2020-04-15] MEDS: CEPHALEXIN 250 MG CAP PO SCH ×4 (05:16→17:44)
[2020-04-15 06:29] LABS: INR 2.43 (0.9-1.15); Partial Thromboplastin Time 43.3 sec (23.0-31.2)
--- NOTE | 2020-04-15 07:30 | NUR ---
OPENING SHIFT NOTE ASSUMED CARE OF PATIENT FROM RIGHT OF WAY BUYER JOSE LEI. PATIENT IS AWAKE, ALERT, AND ORIENTED X4. PATIENT HAS NO S/S OF DISTRESS/SOB OR PAIN AT THIS TIME. BED IS IN LOWEST POSITION WITH SIDE RAILS RAISED X2, BED WHEELS LOCKED, SIITER AT BEDSIDE AND CALL LIGHT IS WITHIN REACH. WILL CONTINUE TO MONITOR. Addendum: 04/15/20 at 1248 by Casandra Rodgers RN RN REPORT RECEIVED FROM APRYL.
--- NOTE | 2020-04-15 08:20 | NUR ---
MD DICKEY AT BEDSIDE UPDATED MD ON PATIENT'S STATUS AND INFORMED MD, PER PATIENT SHE SPOKE WITH HER DAUGHTER AND THEY DO NOT WANT HER TO BE TRANSFERRED TO [place] [place] AND INSTEAD THEY WANT HER TO BE DISCHARGED HOME. IS AWARE.
[2020-04-15 09:00] VITALS: BP 134/56
[2020-04-15] MEDS: PANTOPRAZOLE 40 MG TAB PO SCH (09:50)
[2020-04-15] MEDS: MULTIPLE VITAMINS W/ MINERALS TAB PO SCH (09:50)
[2020-04-15] MEDS: ENOXAPARIN SOD 80 MG/0.8ML SYRINGE SC SCH (09:51)
[2020-04-15] MEDS: METOPROLOL TARTRATE 25 MG TAB PO SCH (09:51)
[2020-04-15] MEDS: LISINOPRIL 10 MG TAB PO SCH (09:51)
[2020-04-15] MEDS: ISOSORBIDE MONONITRATE IR 20 MG TAB PO SCH (09:52)
[2020-04-15] MEDS: MORPHINE SULF INJ 2 MG/ML SYRINGE 1ML IV PRN (11:58)
--- NOTE | 2020-04-15 12:00 | NUR ---
SPOKE WITH DAUGHTER AND PER DAUGHTER SHE HAS A MEETING WITH DR. CHANEY AND THEY WILL DECIDE AFTER THE MEETING TO CONTINUE TRANSFER.
[2020-04-15 13:00] VITALS: BP 147/67
[2020-04-15] MEDS: ACETAMINOPHEN 325 MG TAB PO PRN (14:11)
--- NOTE | 2020-04-15 15:40 | NUR ---
1535 04/15/20 - Contacted MD Roberson via cell phone regarding update on transfer to [facility]. Informed MD currently waiting for available bed. Contacted [facility] at [phone] to update patient on [facility] "will call " list bed changed to 201A transporting to [facility].
[2020-04-15] MEDS: LORazepam 0.5 MG TAB PO PRN (16:31)
[2020-04-15 17:00] VITALS: BP 130/52
--- NOTE | 2020-04-15 17:45 | NUR ---
PATIENT IS ANXIOUS AT THIS TIME AND STATES THE ROOM IS CLOSING IN ON HER. PATIENT WANTS TO SPEAK WITH DAUGHTER. SPOKE WITH DAUGHTER AND PATIENT AND DAUGHTER BOTH WANT TO SIGN PATIENT OUT AMA. PER DAUGHTER SHE IS ON HER WAY.
--- NOTE | 2020-04-15 18:05 | NUR ---
RECEIVED CALL FROM DAUGHTER, DAUGHTER (MANJIT) WANTS PRESCRIPTIONS AND DISCHARGE PAPER WORK FOR THE PATIENT. INFORMED HER PRESCRIPTIONS AND DISCHARGE PAPERWORK ARE NOT GIVEN FOR AMA AND SHE WILL NEED TO CALL [facility] FOR PAPERWORK. DAUGHTER VERBALIZED UNDERSTANDING. PER DAUGHTER AND PATIENT, SHE DOES NOT WANT THE PATIENT TRANSFERRED TO [facility] FOR PROCEDURE AND SHE WILL TALK TO DR. CHANEY AT HER APPOINTMENT AT 1900 TO ADDRESS THESE ISSUES. AMA Note MIKE QUIROGA states they want to leave the hospital Against Medical Advice (AMA) and reiterated she is not medically cleared by a doctor. Patient encouraged to stay for further treatment/stabilization. Patient advised of the risks and benefits of leaving AMA and no prescriptions or discharge paperwork will be given. Patient verbalized understanding. Patient encouraged to return to the ER if symptoms do not improve or worsen.
--- NOTE | 2020-04-15 18:15 | NUR ---
All questions and concerns addressed. Patient verbalized understanding. IV removed with catheter intact, pressure dressing applied. Telemetry unit returned to ICU. Patient taken to vehicle via wheelchair with all personal belongings, accompanied by staff. No distress noted at time of departure.
== END 2020-04-15 18:41 | disposition left against medical advice (07) | DRG 64 ==
LOC: ER 14:08 → TELE 14:09 → TELE-WESTW 21:29 → TELE-CENTR 04-10 22:46
PROVIDERS: ADMIT Hospitalist; ATTEND Internal Medicine
PROC: B3181ZZ Fluoroscopy of Bilateral Internal Carotid Arteries using Low Osmolar Contrast (ICD-10-PCS; principal; 2020-04-09)
DX: I63.40 Cerebral infarction due to embolism of unspecified cerebral artery (principal); N17.0 Acute kidney failure with tubular necrosis; I13.0 Hypertensive heart and chronic kidney disease with heart failure and stage 1 through stage 4 chronic kidney disease, or unspecified chronic kidney disease; I16.1 Hypertensive emergency; E44.1 Mild protein-calorie malnutrition; E87.1 Hypo-osmolality and hyponatremia; N39.0 Urinary tract infection, site not specified; G93.49 Other encephalopathy; K27.9 Peptic ulcer, site unspecified, unspecified as acute or chronic, without hemorrhage or perforation; I25.5 Ischemic cardiomyopathy; E11.22 Type 2 diabetes mellitus with diabetic chronic kidney disease; G47.10 Hypersomnia, unspecified; E66.01 Morbid (severe) obesity due to excess calories; I25.2 Old myocardial infarction; I25.10 Atherosclerotic heart disease of native coronary artery without angina pectoris; E78.5 Hyperlipidemia, unspecified; G62.9 Polyneuropathy, unspecified; E11.40 Type 2 diabetes mellitus with diabetic neuropathy, unspecified; E11.21 Type 2 diabetes mellitus with diabetic nephropathy; Z95.5 Presence of coronary angioplasty implant and graft; J44.9 Chronic obstructive pulmonary disease, unspecified; Z68.30 Body mass index [BMI] 30.0-30.9, adult; R44.1 Visual hallucinations; Z96.651 Presence of right artificial knee joint; Z90.710 Acquired absence of both cervix and uterus; Z85.41 Personal history of malignant neoplasm of cervix uteri; I44.7 Left bundle-branch block, unspecified; Z68.29 Body mass index [BMI] 29.0-29.9, adult; F17.200 Nicotine dependence, unspecified, uncomplicated; H53.2 Diplopia; Z79.02 Long term (current) use of antithrombotics/antiplatelets; Z79.82 Long term (current) use of aspirin; Z79.84 Long term (current) use of oral hypoglycemic drugs; Z79.899 Other long term (current) drug therapy; Z86.73 Personal history of transient ischemic attack (TIA), and cerebral infarction without residual deficits; Z91.81 History of falling; Z53.29 Procedure and treatment not carried out because of patient's decision for other reasons; N18.30 Chronic kidney disease, stage 3 unspecified; H47.619 Cortical blindness, unspecified side of brain; I67.2 Cerebral atherosclerosis
CPT/HCPCS: 36224; 36415; 70450; 70496; 70498; 70551; 71045; 80048; 80053; 80061; 80307; 81001; 82962; 83036; 84443; 84484; 85025; 85610; 85652; 85730; 86850; 86870; 86900; 86901; 87040; 87081; 87086; 93005; 93886; 96361; 96365; 96366; 96372; 96375; 96376; 99152; G0378; J1815; J2543; J3490; Q9967